=== PATIENT | female | born 1995 ===

== ENCOUNTER 2018-01-27 22:41 | Emergency (ER) | payer OTHER ==
[2018-01-27 22:41] VITALS: BMI 22.6
== END 2018-01-27 22:48 | disposition left against medical advice (07) ==
LOC: ED 22:41
DX: Z02.89 Encounter for other administrative examinations (principal); O36.8130 Decreased fetal movements, third trimester, not applicable or unspecified

== ENCOUNTER 2018-05-30 22:30 | Emergency (ER) | payer SELFPAY ==
[2018-05-30 22:35] VITALS: BMI 25.7
[2018-05-30 22:38] VITALS: RESP 18; TEMP 98.3
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
[2018-05-31 00:14] VITALS: BP 123/75; PULSE 78; O2SAT 98
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
== END 2018-05-31 00:24 | disposition home or self-care (01) ==
LOC: ED 22:30
DX: S43.401A Unspecified sprain of right shoulder joint, initial encounter (principal); X50.9XXA Other and unspecified overexertion or strenuous movements or postures, initial encounter